=== PATIENT | female | born 1940 | race Caucasian/White ===

== ENCOUNTER 2020-02-06 04:19 | Inpatient (IN) | payer MEDICARE, OTHER ==
[~2020-02-06] VITALS: Ht 144.8 cm; Wt 63.0 kg
[~2020-02-06 04:19] MED LIST: ASPIRIN325 PO; LIPITOR 20 MG T20 M1 PO; LISINOPRIL20 MG PO; LOPRESSOR25 PO; NORVASC10 MG PO; NORVASC5 MG PO
[2020-02-06 04:21] VITALS: BP 163/66
[2020-02-06] MEDS ORDERED: HYDROCHLOROTHIA25 M2 PO (04:57)
[2020-02-06 05:00] LABS: ABSOLUTE BASOPHILS 0.1 thou/uL (0.0-0.2); ABSOLUTE EOSINOPHILS 0.2 thou/uL (0.0-0.7); ABSOLUTE LYMPHOCYTES 2.5 thou/uL (0.8-5.3); ABSOLUTE MONOCYTES 0.7 thou/uL (0.0-1.2); ABSOLUTE NEUTROPHILS 4.7 thou/uL (1.6-8.1); BASOPHILS 0.8 %; EOSINOPHILS 2.2 %; HEMATOCRIT 39.3 % (37.0-47.0); HEMOGLOBIN 13.4 gm/dL (12.0-15.0); MCH 28.2 pg (26.0-34.0); MCHC 34.1 g/dL (28.0-37.0); MCV 82.7 fL (80.0-100.0); MONOCYTES 8.3 %; MPV 8.3 fl. (7.2-11.1); NUCLEATED RBCS 0 /100WBC; PLATELET COUNT* 262 thou/uL (150-400); POLYS 57.7 %; RBC 4.75 mil/uL (4.20-5.00); RDW-CV 13.6 % (10.5-14.5); WBC 8.2 thou/uL (4.0-11.0)
[2020-02-06 05:21] LABS: APTT 26.9 Seconds (25.0-31.3); INR 1.1; PROTIME 10.8 Seconds (9.20-11.50)
[2020-02-06 05:23] LABS: ALBUMIN 3.5 g/dL (3.4-5.0); CALCIUM 8.7 mg/dL (8.5-10.1); CREATININE 0.8 mg/dL (0.6-1.3); MAGNESIUM 1.9 mg/dL (1.8-2.4); TOTAL BILIRUBIN 0.4 mg/dL (<0.1-1.0); TOTAL PROTEIN 7.7 g/dL (6.4-8.2)
[2020-02-06 05:26] LABS: POTASSIUM 2.9 mmol/L (3.5-5.1)
--- NOTE | 2020-02-06 06:07 | NUR ---
RAY NOTIFIED UPON PT RETURN FROM CT. PT CONNECTED TO MONITOR
[2020-02-06 06:35] LABS: URINE BILIRUBIN NEGATIVE (Negative); URINE BLOOD NEGATIVE (Negative); URINE CLARITY CLEAR; URINE COLOR YELLOW; URINE GLUCOSE-RANDOM NEGATIVE (Negative); URINE KETONES NEGATIVE (Negative); URINE LEUKOCYTES-REFLEX TRACE (Negative); URINE NITRITE-REFLEX NEGATIVE (Negative); URINE PROTEIN NEGATIVE (Negative); URINE SPECIFIC GRAVITY <= 1.005 (1.005-1.030); URINE UROBILINOGEN 0.2 E.U./dl (0.2-1.0)
[2020-02-06 06:41] LABS: SQUAMOUS 4-10 Moderate /LPF (0-3); URINE RBC 0-2 Rare /HPF (0-2); URINE WBC-REFLEX 0-5 Rare /HPF (0-5)
[2020-02-06 06:42] LABS: BACTERIA-REFLEX 1-9 Few /HPF (None Seen); CASTS None Seen /LPF (None Seen); CRYSTALS None Seen /LPF (None Seen); MUCUS None Seen strn/LPF (None Seen)
[2020-02-06 15:20] VITALS: BP 153/63
[2020-02-06 15:45] VITALS: BP 165/67
--- NOTE | 2020-02-06 16:48 | EKG ---
[place] [address] ELECTROCARDIOGRAM REPORT Name: SOLIS SINGLETARY V Room: [place] [address] ADM IN .R.#: [id number] Admission: 02/06/20 Attend Phys: Rojas Whitehead, Discharge: Date of : 42 Date of Service: 02/06/20 0450 Report #: [id number] THIS REPORT FOR: //name// [facility] ED Test Date: 2020-02-06 Test Time: 04:50:07 Pat Name: SOLIS SINGLETARY Department: Room: [facility] Gender: F Supervisor Fleshing: MR : 1940 Requested By: Linda Curran Order Number: [id number] MD: Cole Jaimes Measurements Intervals [place] Rate: 61 P: 70 DE: 143 QRS: 60 QRSD: 91 T: 27 QT: 443 QTc: 447 Interpretive Statements Sinus rhythm Supraventricular bigeminy Consider RVH or posterior infarct Compared to ECG 05/01/2017 16:23:02 Atrial premature complex(es) now present ST (T wave) deviation no longer present Myocardial infarct finding still present Electronically Signed On 02-06-2020 16:47:42 CDT by Cole Jaimes [email or web address] <ELECTRONICALLY SIGNED> By: Cole Jaimes MD, [facility] 02/06/20 1647 9 0450 Cole Jaimes MD, [facility] /EPI
[2020-02-06 20:00] VITALS: BP 115/64; BP 155/64
[2020-02-06 21:36] LABS: CALCIUM 8.6 mg/dL (8.5-10.1); CREATININE 0.7 mg/dL (0.6-1.3); POTASSIUM 3.4 mmol/L (3.5-5.1)
[2020-02-07] VITALS (8 sets, daily range): BP systolic 125–173; BP diastolic 58–74
--- NOTE | 2020-02-07 06:21 | NUR ---
ASSUMED CARE OF PT AFTER REPORFT AT 1930. PT A&OX4. VSS. PHYSICAL ASSESSMENT COMPLETED AND CHARTED. PT ON RA. PT TRACING SR ON TELE. PT UPSRANDBY TO RESTROOM. PT DENIES ANY PAIN. NIH CHARTED. FALL PRECAUTIONS IN PLACE. CALL LIGHT WITHIN REACH.
[2020-02-07 12:29] LABS: CALCIUM 8.4 mg/dL (8.5-10.1); CREATININE 0.6 mg/dL (0.6-1.3); POTASSIUM 3.7 mmol/L (3.5-5.1)
--- NOTE | 2020-02-07 18:57 | NUR ---
PATIENT RESTING IN BED. UP WITH STANDBY ASSISTANCE. AXO4 BUT IMPULSIUVE AT TIMES. HOURLY ROUNDIG COMPLETED FOR PATIENT Safety
[2020-02-08 00:36] VITALS: BP 134/56
[2020-02-08 04:42] VITALS: BP 150/66
--- NOTE | 2020-02-08 05:16 | NUR ---
ASSUMED CARE OF PT AFTER REPORT AT 1930. PT A&OX4. FORGETFUL AT TIMES. VSS. PHYSICAL ASSESSMENT COMPLETED AND CHARTED. PT ON RA. PT TRACING SR ON TELE. PT UPSTANDBY TO RESTROOM. PT DENIES ANY PAIN OR DISCOMFORT. PT ABLE TO SLEEP WELL ON BED. FALL PRECAUTIONS IN PLACE. CALL LIGHT WITHIN REACH.
[2020-02-08 07:53] VITALS: BP 167/73
[2020-02-08] MEDS ORDERED: ASPIR 8181 MG PO (12:39)
[2020-02-08] MEDS ORDERED: SERTRALINE HCL50 MG PO (12:39)
[2020-02-08] MEDS ORDERED: PLAVIX 75 MG TA75 MG PO (12:40)
[2020-02-08 12:59] VITALS: BP 167/73
== END 2020-02-08 13:30 | disposition home or self-care (01) | DRG 312 ==
LOC: M.ERS 04:19 → M.TBA-ER 05:40 → M.2W 15:46
PROVIDERS: Internal Medicine; Personal Emergency Response Attendant; ADMIT Internal Medicine
DX: I95.1 Orthostatic hypotension (principal); N39.0 Urinary tract infection, site not specified; R65.10 Systemic inflammatory response syndrome (SIRS) of non-infectious origin without acute organ dysfunction; E86.1 Hypovolemia; E86.0 Dehydration; E87.6 Hypokalemia; R73.03 Prediabetes; E78.00 Pure hypercholesterolemia, unspecified; I72.6 Aneurysm of vertebral artery; J32.9 Chronic sinusitis, unspecified; R25.1 Tremor, unspecified; I10 Essential (primary) hypertension; Z79.82 Long term (current) use of aspirin; Z79.899 Other long term (current) drug therapy; Z91.09 Other allergy status, other than to drugs and biological substances; Z88.0 Allergy status to penicillin; Z82.49 Family history of ischemic heart disease and other diseases of the circulatory system

== ENCOUNTER → 2020-05-25 | Outpatient (CLI) | payer MEDICARE, OTHER ==
[~2020-05-25] MED LIST changes: +ASPIR 8181 MG PO; +HYDROCHLOROTHIA25 M2 PO; +PLAVIX 75 MG TA75 MG PO; +SERTRALINE HCL50 MG PO
== END ==
LOC: M.MRI 08:30
PROVIDERS: ATTEND Psychiatry & Neurology Neuromuscular Medicine
DX: I65.23 Occlusion and stenosis of bilateral carotid arteries (principal); I72.9 Aneurysm of unspecified site; I63.9 Cerebral infarction, unspecified

== ENCOUNTER → 2020-06-08 | Outpatient (CLI) | payer MEDICARE, OTHER | LOC: M.MRI 07:29 | PROVIDERS: ATTEND Orthopaedic Surgery | DX: S83.241A Other tear of medial meniscus, current injury, right knee, initial encounter (principal); M25.561 Pain in right knee; X58.XXXA Exposure to other specified factors, initial encounter; Y93.89 Activity, other specified; Y92.89 Other specified places as the place of occurrence of the external cause; Y99.8 Other external cause status ==